=== PATIENT | male | born 1955 | race African-American/Black ===

== ENCOUNTER 2019-07-15 17:34 | Emergency (ER) | payer MEDICAID, OTHER ==
[~2019-07-15] VITALS: Ht 170.2 cm; Wt 83.0 kg
[2019-07-15 20:05] LABS: EOSINOPHILS % 1.5 % (0.0-5.0); HEMATOCRIT. 39.6 % (42.0-52.0); HEMOGLOBIN. 12.9 g/dL (14.0-18.0); MEAN CORPUSCULAR HEMOGLOBIN 30.7 pg (28.0-32.0); MEAN CORPUSCULAR VOLUME 94.2 fL (80.0-94.0); MEAN PLATELET VOLUME 7.6 fl (7.4-10.4); MONOCYTES % 9.1 % (2.0-8.0); NEUTROPHILS % 59.4 % (40.0-76.0); PLATELET 359 x1000/uL (130-400); RED CELL DISTRIBUTION WIDTH 15.1 % (11.6-14.6)
[2019-07-15 20:11] LABS: CHLORIDE 105 mEq/L (98-107)
[2019-07-15] MEDS ORDERED: NITROGLYCERIN 0.1MG/HR PATCH TOP ONE (20:45)
[2019-07-15] MEDS ORDERED: FUROSEMIDE 40MG/4ML VIAL IVP ONE (20:45)
[2019-07-16 00:28] VITALS: BP 158/108
== END 2019-07-16 00:40 | disposition short-term general hospital (02) ==
LOC: ER 17:34 → CANBEDREQ 07-16 02:44
DX: I11.0 Hypertensive heart disease with heart failure (principal); I50.9 Heart failure, unspecified; R60.0 Localized edema; Z91.14 Patient's other noncompliance with medication regimen; Z87.891 Personal history of nicotine dependence; Z71.6 Tobacco abuse counseling
CPT/HCPCS: 36415; 71045; 80053; 83880; 84484; 85025; 93005; 96374; 99285; 99406; J1940

== ENCOUNTER 2020-12-24 18:12 | Emergency (ER) | payer MEDICAID, OTHER ==
[~2020-12-24] VITALS: Ht 172.7 cm; Wt 87.0 kg
[2020-12-24 18:25] VITALS: BP 99/61
== END 2020-12-24 22:25 | disposition left against medical advice (07) ==
LOC: ER 18:12
DX: Z53.21 Procedure and treatment not carried out due to patient leaving prior to being seen by health care provider (principal); I11.0 Hypertensive heart disease with heart failure; I50.9 Heart failure, unspecified
CPT/HCPCS: 93005